=== PATIENT | female | born 1965 | race Caucasian/White ===

== ENCOUNTER 2018-10-13 06:32 | Emergency (ER) | payer OTHER ==
[~2018-10-13] VITALS: Ht 160 cm; Wt 68.0 kg
[2018-10-13] MEDS ORDERED: ARMOUR THYROID90 M1 (06:45)
[2018-10-13] MEDS ORDERED: ATORVASTATIN (06:45)
[2018-10-13] MEDS ORDERED: ARMOUR THYROID60 M1 (06:45)
[2018-10-13] MEDS ORDERED: CYMBALTA60 MG (06:46)
[2018-10-13] MEDS ORDERED: DILAUDID2 MG (06:46)
[2018-10-13] MEDS ORDERED: PERCOCET 7.5-31 EAC1 (06:47)
[2018-10-13 07:43] LABS: ABSOLUTE EOSINOPHILS 0.1 thou/uL (0.0-0.7); ABSOLUTE LYMPHOCYTES 1.2 thou/uL (0.8-5.3); ABSOLUTE MONOCYTES 0.6 thou/uL (0.0-1.2); ABSOLUTE NEUTROPHILS 2.9 thou/uL (1.6-8.1); BASOPHILS 0.6 %; EOSINOPHILS 1.8 %; HEMATOCRIT 24.1 % (37.0-47.0); HEMOGLOBIN 8.2 gm/dL (12.0-15.0); LYMPHOCYTES 24.4 %; MCH 31.7 pg (26.0-34.0); MCV 93.3 fL (80.0-100.0); MONOCYTES 12.1 %; MPV 7.8 fl. (7.2-11.1); NUCLEATED RBCS 0 /100WBC; PLATELET COUNT* 272 thou/uL (150-400); POLYS 61.1 %; RBC 2.58 mil/uL (4.20-5.00); RDW-CV 13.5 % (10.5-14.5); WBC 4.7 thou/uL (4.0-11.0)
[2018-10-13 07:47] LABS: ANION GAP 9 mmol/L (7-16); BUN 7 mg/dL (7-18); CALCIUM 8.7 mg/dL (8.5-10.1); CHLORIDE 101 mmol/L (98-107); CO2 28 mmol/L (21-32); CREATININE 0.7 mg/dL (0.6-1.3); GLUCOSE 134 mg/dL (70-99); POTASSIUM 3.8 mmol/L (3.5-5.1); SODIUM 138 mmol/L (136-145)
[2018-10-13 07:58] LABS: ALBUMIN 2.7 g/dL (3.4-5.0); ALKALINE PHOSPHATASE 33 U/L (46-116); NT-PRO BRAIN NAT PEPTIDE 281 pg/mL (<300); SGOT 39 U/L (15-37); SGPT 43 U/L (30-65); TOTAL BILIRUBIN 1.1 mg/dL (<0.1-1.0); TOTAL PROTEIN 5.9 g/dL (6.4-8.2); TROPONIN-I LEVEL <0.06 ng/mL (<0.06)
--- NOTE | 2018-10-13 10:53 | EKG ---
[place] [address] ELECTROCARDIOGRAM REPORT Name: EITAN FINK Room: [facility]#: [id number] Admission: 10/13/18 Attend Phys: Discharge: Date of : 63 Report #: [id number] THIS REPORT FOR: //name// [facility] ED Test Date: 2018-10-13 Test Time: 07:57:08 Pat Name: EITAN FINK Department: Room: Gender: F Graduating Machine Operator: Natalia MELÉNDEZ : 1965 Requested By: Juan Antonio Connolly Order Number: [id number] MD: Harvey Paulson Measurements Intervals [place] Rate: 93 P: 41 MT: 136 QRS: 32 QRSD: 73 T: QT: 406 QTc: 506 Interpretive Statements Sinus rhythm Low voltage, precordial leads Borderline T wave abnormalities Prolonged QT interval No previous ECG available for comparison Electronically Signed On 10-13-2018 10:53:14 [employer] by Harvey Paulson [email or web address] <ELECTRONICALLY SIGNED> By: Harvey Paulson MD, [facility] 10/13/18 [id number] Harvey Paulson MD, FACC /EPI
[2018-10-13 11:04] VITALS: BP 132/62
== END 2018-10-13 11:00 | disposition home or self-care (01) ==
LOC: M.ERS 06:32
PROVIDERS: Emergency Medicine Emergency Medical Services
DX: M25.561 Pain in right knee (principal); E03.9 Hypothyroidism, unspecified; E78.00 Pure hypercholesterolemia, unspecified; G89.29 Other chronic pain; Z88.2 Allergy status to sulfonamides

== ENCOUNTER 2021-02-27 13:40 | Emergency (ER) | payer OTHER ==
[~2021-02-27] VITALS: Ht 167.6 cm; Wt 63.5 kg
[~2021-02-27 13:40] MED LIST: ARMOUR THYROID60 M1; ARMOUR THYROID90 M1; ATORVASTATIN; CYMBALTA60 MG; DILAUDID2 MG; PERCOCET 7.5-31 EAC1
[2021-02-27] MEDS ORDERED: LISINOPRIL5 MG PO (13:56)
[2021-02-27] MEDS ORDERED: HYDROCHLOROTHIA25 M1 PO (13:56)
[2021-02-27] MEDS ORDERED: CEPHALEXIN500 MG PO (14:26)
[2021-02-27 14:48] VITALS: BP 123/75
== END 2021-02-27 14:50 | disposition home or self-care (01) ==
LOC: M.ERS 13:40
DX: S90.812A Abrasion, left foot, initial encounter (principal); S90.811A Abrasion, right foot, initial encounter; E03.9 Hypothyroidism, unspecified; E78.00 Pure hypercholesterolemia, unspecified; I10 Essential (primary) hypertension; E11.9 Type 2 diabetes mellitus without complications; G89.29 Other chronic pain; Z88.5 Allergy status to narcotic agent; Z88.2 Allergy status to sulfonamides; W22.8XXA Striking against or struck by other objects, initial encounter; Y93.89 Activity, other specified; Y92.89 Other specified places as the place of occurrence of the external cause; Y99.8 Other external cause status